=== PATIENT | male | born 2000 | race Caucasian/White ===

== ENCOUNTER 2023-12-09 21:17 | Emergency (ER) | payer MEDICAID ==
[~2023-12-09] VITALS: Ht 172.7 cm; Wt 90.0 kg
[2023-12-09 21:22] VITALS: O2SAT 98
[2023-12-09] MEDS: BACITRACIN ZINC OINT UDPKT TOP ONE (22:15)
[2023-12-09] MEDS: LIDOCAINE HCL/PF 1% 10 MG/ML 5ML VIAL INFIL ONE (22:15)
[2023-12-09] MEDS: IBUPROFEN 600MG TABLET PO STA (22:32)
[2023-12-09] MEDS: LIDOCAINE HCL/EPINEPHRINE 1%-EPI 1:100,000 20 ML VIAL INFIL ONE (22:45)
[2023-12-10] MEDS ORDERED: BO1 TP (00:13)
[2023-12-10 00:15] VITALS: BP 128/50; PULSE 78; RESP 16; TEMP 98
== END 2023-12-10 00:15 | disposition home or self-care (01) ==
LOC: ER 21:17
DX: S61.012A Laceration without foreign body of left thumb without damage to nail, initial encounter (principal); W26.0XXA Contact with knife, initial encounter; Y93.89 Activity, other specified; Y92.89 Other specified places as the place of occurrence of the external cause; Y99.8 Other external cause status
CPT/HCPCS: 73130; 12002; 99283; J3490 ×2; Z7610